=== PATIENT | female | born 2000 | race African-American/Black ===

== ENCOUNTER 2019-09-28 19:39 | Emergency (ER) | payer BC, OTHER ==
[~2019-09-28] VITALS: Ht 167.6 cm; Wt 57.6 kg
--- NOTE | 2019-09-28 19:45 | NUR ---
PT CAME TO THE ED C/O ALLERGIC REACTION S/P DRINKING SOMETHING W/ ALMOND . PT SELF INJECTED EPIPEN@[id number]. PT HAD NO MEDICAL COMPLAINTS AT THIS TIME. -ANGIOEDEMA. -SOB. PT CONNECTED TO THE CHILD SUPPORT SPECIALIST ADN POX
[2019-09-28] MEDS ORDERED: predniSONE 20 MG TABLET ONE (20:28)
[2019-09-28] MEDS ORDERED: FAMOTIDINE (20 MG) 20 MG TABLET ONE (20:28)
[2019-09-28] MEDS ORDERED: diphenhydrAMINE HCL 50 MG CAPSULE ONE (20:28)
[2019-09-28] MEDS ORDERED: predniSONE 10 MG TABLET PO ONE (20:30)
[2019-09-28] MEDS ORDERED: FAMOTIDINE (20 MG) 20 MG TABLET PO ONE (20:30)
[2019-09-28] MEDS ORDERED: diphenhydrAMINE HCL 50 MG CAPSULE PO ONE (20:30)
--- NOTE | 2019-09-28 20:32 | NUR ---
PT MEDICATED ORDERED.
--- NOTE | 2019-09-28 21:08 | NUR ---
Patient discharged to home in stable condition. Written and verbal after care instructions given. Patient verbalizes understanding of instruction. PT ambulatory with a steady gait
[2019-09-28 21:09] VITALS: BP 124/78
== END 2019-09-28 21:09 | disposition home or self-care (01) ==
LOC: ER 19:41
DX: T78.1XXA Other adverse food reactions, not elsewhere classified, initial encounter (principal); R00.0 Tachycardia, unspecified; X58.XXXA Exposure to other specified factors, initial encounter
CPT/HCPCS: 99284; J7512; Q0163

== ENCOUNTER 2019-10-20 19:10 | Emergency (ER) | payer BC ==
[~2019-10-20] VITALS: Ht 167.6 cm; Wt 57.6 kg
--- NOTE | 2019-10-20 19:17 | NUR ---
PT AAOX4. AMBULATORY WITH STEADY GAIT. BIBSELF C.O. ALLERGIC REACTION THAT STARTED 1HR AGO. PT TOOK EPI PEN TEN MINS AGO. C/O EYE, BODY, AND EXT INFLAMMATION. ON MONITOR AND PULSE OX. VSS. AWAITING MD FOR EVAL.
[2019-10-20] MEDS ORDERED: diphenhydrAMINE HCL 50 MG/ML VIAL ONE (19:23)
[2019-10-20] MEDS ORDERED: FAMOTIDINE/PF INJ 20 MG/2 ML VIAL IV ONE ×2 (19:23→19:30)
[2019-10-20] MEDS ORDERED: methylPREDNISolone SOD SUCC 125 MG/2ML VIAL ONE (19:23)
[2019-10-20] MEDS ORDERED: IV NS 0.9% 1,000 ML BAG IV ONE (19:30)
[2019-10-20] MEDS ORDERED: methylPREDNISolone SOD SUCC 125 MG/2ML VIAL IV ONE (19:30)
[2019-10-20] MEDS ORDERED: diphenhydrAMINE HCL 50 MG/ML VIAL IV ONE (19:30)
--- NOTE | 2019-10-20 19:36 | NUR ---
PT MEDICATED. RR EVEN AND UNLABORED. PT RESTING IN BED COMFORTABLY.
--- NOTE | 2019-10-20 20:32 | NUR ---
Patient discharged to home in stable condition. Written and verbal after care instructions given. Patient verbalizes understanding of instruction and RX. Pt stated she feels better. VSS. Picked up by dad.
--- NOTE | 2019-10-20 20:32 | NUR ---
IV removed. Catheter intact and site benign. Pressure and 4x4 applied to site. No bleeding noted.
[2019-10-20 20:34] VITALS: BP 114/72
== END 2019-10-20 20:35 | disposition home or self-care (01) ==
LOC: ER 19:11
DX: L50.0 Allergic urticaria (principal); R00.0 Tachycardia, unspecified
CPT/HCPCS: 96374; 96375; 99284; J3490; J1200; J2930; J7030

== ENCOUNTER 2020-05-30 00:53 | Emergency (ER) | payer BC ==
[~2020-05-30] VITALS: Ht 165.1 cm; Wt 55.8 kg
[2020-05-30 00:53] VITALS: BP 104/77
== END 2020-05-30 01:54 | disposition home or self-care (01) ==
LOC: ER 00:54
DX: R21 Rash and other nonspecific skin eruption (principal)